=== PATIENT | male | born 2005 | race Hispanic/Latino ===

== ENCOUNTER 2023-01-21 10:16 | Emergency (ER) | payer SELFPAY ==
[2023-01-21] VITALS (19 sets, daily range): BP systolic 101–129; BP diastolic 50–61; PULSE 73–96; RESP 15–35; TEMP 36.4; O2SAT 69–100
--- NOTE | ~2023-01-21 | CT_ITS ---
EXAMINATION: CT diagnostic chest w con DATE: 01/21/2023 13:27 INDICATION: Hypoxia TECHNIQUE: Computed tomography (CT) of the chest was performed with 75 cc Omnipaque 350 intravenous c ontrast. The dose-length product was 161.89 mGy-cm. Automated exposure control and iterative reconstr uction technique were employed. COMPARISON: Chest dated 01/21/2023 FINDINGS: There is thoracic lymphadenopathy, likely reactive. Heart size normal. No significant pleur al or pericardial effusion. There are extensive patchy groundglass opacities in both lungs, consisten t with pneumonia. No endobronchial lesions. No pneumothorax. IMPRESSION: 1. Extensive patchy groundglass opacities of both lungs, consistent with pneumonia. Reviewed, dictated and finalized at location B. [employer]ER IMPRESSION: 1. Extensive patchy groundglass opacities of both lungs, consistent with pneumo alexis.
--- NOTE | ~2023-01-21 | XR_ITS ---
XR chest 1V portable INDICATION: Shortness of breath and cough TECHNIQUE: 2 view chest. FINDINGS: No prior studies for comparison. There is mild bilateral interstitial prominence and peribronchial cuffing. There is no focal consoli dation, pleural effusion, or pneumothorax. The cardiomediastinal silhouette is normal. IMPRESSION: 1. Findings most consistent with bronchiolitis versus an atypical or viral pneumonia. Reviewed, dictated and finalized at location B. [employer]OR IMPRESSION: 1. Findings most consistent with bronchiolitis versus an atypical or viral pne [facility].
--- NOTE | 2023-01-21 10:35 | ED.GENADULT ---
HPI - General Adult General Chief complaint: Overdose Stated complaint: od Time Seen by Provider: 01/21/23 10:21 History of Present Illness HPI narrative: 17-year-old male presents for evaluation after a suspected opiate overdose. Patient states he was in a hotel last night and was attempting to use cocaine but was found to be unresponsive in the hotel room. Patient was treated with intranasal and IV Narcan and patient had an awakening. My arrival to emergency department patient denies any complaints. Patient states he was attempting to do cocaine and opiates. Patient states this was not an attempt at suicide. Patient states he has no homicidal or suicidal ideation. Patient is alert appropriate and patient's family is present with him. Related Data Allergies Allergy/AdvReac Type Severity Reaction Status Date / Time No Known Allergies Allergy Verified 01/21/23 11:21 Review of Systems Review of Systems: All systems reviewed & are unremarkable except as noted in HPI and below PMFSH Social History Social History Substance use type: crack/cocaine Exam Narrative: APPEARANCE: Well appearing, no pain, no distress, well-nourished. HEAD: normocephalic, atraumatic. EYES: PERRLA/EOMI, conjunctivae clear. NOSE: Normal no drainage EARS:TMS clear with good light reflex. THROAT: Pharynx clear, no exudate. NECK: Supple. No adenopathy, no masses. RESPIRATORY: Airway patent, respirations nonlabored. Clear to auscultation bilaterally, no rales, rhonchi, wheezing. CARDIOVASCULAR: Regular rate and rhythm without murmurs rubs or gallops. ABDOMINAL: Soft, nontender, nondistended, normal bowel sounds MUSCULOSKELETAL: Moves all extremities. Strength/ROM intact, No edema, No calf tenderness. NEURO: Alert. Cranial nerves II through XII intact. Grossly intact SKIN: Warm, dry. Normal Color Course Course Emergency Course: 17-year-old male presenting ED for evaluation after receiving Narcan for being unresponsive. In the ED patient did have some hypoxia but patient's oxygenation was later stable on room air. Patient was able to ambulate without complaint or hypoxia. CT did show some concern for pneumonia. Patient was started on [place] throw and Augmentin for outpatient. Patient was requesting discharge home the patient was alert oriented and clinically stable. patient was able to maintain his oxygenation on room air for an extended period of time and during ambulation prior to discharge. Vital Signs Vital signs: Vital Signs Respiratory Rate 25 H 01/21/23 10:21 Temperature 97.6 F 01/21/23 10:22 Pulse Rate 73 01/21/23 15:51 Respiratory Rate 16 01/21/23 15:51 Blood Pressure 115/50 L 01/21/23 15:51 Pulse Oximetry 91 01/21/23 16:15 Oxygen Delivery Non-Rebreather Mask 01/21/23 11:27 Oxygen Flow Rate 15 01/21/23 11:27 Medical Decision Making Vital Signs Vital Signs: Vital Signs Respiratory Rate 25 H 01/21/23 10:21 Temperature 97.6 F 01/21/23 10:22 Pulse Rate 73 01/21/23 15:51 Respiratory Rate 16 01/21/23 15:51 Blood Pressure 115/50 L 01/21/23 15:51 Pulse Oximetry 91 01/21/23 16:15 Oxygen Delivery Non-Rebreather Mask 01/21/23 11:27 Oxygen Flow Rate 15 01/21/23 11:27 Lab Data 01/21/23 13:16 Labs: Lab Results 01/21/23 01/21/23 01/21/23 Range/Units 12:01 12:08 13:16 Methemoglobin 0.4 (0-1.5) %THb Creatinine 0.80 (0.8-1.5) mg/dL Estim Creat Clear Calc 121 ml/min Estimated GFR > 60 (59 - ) Urine Opiates Screen Negative (Negative) Urine Methadone Screen Negative (Negative) Ur Barbiturates Screen Negative (Negative) Ur Phencyclidine Scrn Negative (Negative) Ur Amphetamine Screen Negative (Negative) U Benzodiazepines Scrn Negative (Negative) Urine Cocaine Screen Negative (Negative) U Cannabinoids Screen Positive A (Negative) ABG Data ABG results: 01/21/23
[2023-01-21] MEDS: NALOXONE HCL INJ 2 MG/2 ML AMP IV PUSH (11:27)
[2023-01-21] MEDS: ONDANSETRON INJ 4 MG/2 ML VIAL IV PUSH (11:27)
[2023-01-21] MEDS: ALBUTEROL SULFATE NEB 2.5 MG/3 ML INH INHALATION (12:00)
[2023-01-21 12:13] LABS: Alveolar/Arterial O2 Gradient 95.3 mmHg; Fractional Inspired Oxygen 21 %; HCO3 ABG 24.8 mEq/l (22.0-26.0); Methemoglobin ABG 0.4 %THb (0-1.5); Oxygen Content ABG 18.8 %vol (16.0-22.0); PO2 FiO2 Ratio Arterial Blood 2.29 %; Reduced Hemoglobin 16.9 %THb (0-5.0); Total Hemoglobin 16.4 g/dL (12.0-18.0); pH ABG 7.359 (7.350-7.450)
[2023-01-21 12:16] LABS: Oxygen Saturation ABG 82.1 % (95.0-100.0); PO2 ABG 48.1 mmHg (80.0-100.0)
[2023-01-21 12:17] LABS: Modified Allen's Test Pass; Oxyhemoglobin 81.7 % THb (90.0-100.0); Site Drawn RIGHT RADIAL
[2023-01-21] MEDS: METOCLOPRAMIDE HCL INJ 10 MG/2 ML VIAL IV PUSH (12:29)
[2023-01-21 12:31] LABS: Amphetamine Screen Urine Negative (Negative); Barbiturate Screen Urine Negative (Negative); Benzodiazepines Screen Urine Negative (Negative); Cannabinoid Screen Urine Positive (Negative); Cocaine Screen Urine Negative (Negative); Methadone Screen Urine Negative (Negative); Opiate Screen Urine Negative (Negative); Phencyclidine Screen Urine Negative (Negative)
[2023-01-21 14:13] LABS: Estimated CRCL calculation 121 ml/min; Estimated Glomerular Filt Rate > 60
== END 2023-01-21 16:57 | disposition home or self-care (01) ==
PROVIDERS: Emergency Provider Emergency Medicine
DX: T40.5X1A Poisoning by cocaine, accidental (unintentional), initial encounter (principal); T40.601A Poisoning by unspecified narcotics, accidental (unintentional), initial encounter; R91.8 Other nonspecific abnormal finding of lung field
CPT/HCPCS: 36600; 71045; 71260; 80307; 82375; 82805; 83050; 94640; 96374; 96375; 99284; J2310; J2405; J2765; Q9967